=== PATIENT | male | born 1990 | race Two or more races ===

== ENCOUNTER 2017-07-12 04:40 | Emergency (ER) | payer OTHER ==
[~2017-07-12] VITALS: Ht 175.3 cm; Wt 145.1 kg
[2017-07-12] MEDS ORDERED: cloNIDine HCL 0.1 MG TAB ONE (04:51)
[2017-07-12] MEDS ORDERED: cloNIDine HCL 0.1 MG TAB PO ONE (05:00)
[2017-07-12] MEDS ORDERED: TETANUS-DIPTH-ACEL PERTUSSIS 0.5ML SYRG IM ONE (07:00)
[2017-07-12] MEDS ORDERED: METOPROLOL TARTRATE 50 MG TAB PO ONE (07:00)
[2017-07-12 07:55] VITALS: BP 166/101
== END 2017-07-12 07:55 | disposition home or self-care (01) ==
LOC: ER 04:46
DX: S61.211A Laceration without foreign body of left index finger without damage to nail, initial encounter (principal); R03.0 Elevated blood-pressure reading, without diagnosis of hypertension; Z23 Encounter for immunization; W26.0XXA Contact with knife, initial encounter; Y93.89 Activity, other specified; Y99.8 Other external cause status; Y92.89 Other specified places as the place of occurrence of the external cause
CPT/HCPCS: 12001; 90471; 90715